=== PATIENT | male | born 1985 | race Two or more races ===

== ENCOUNTER 2018-04-28 08:01 | Emergency (ER) | payer SELFPAY ==
[2018-04-28 08:16] VITALS: BP 134/82; PULSE 80; TEMP 99.1; BMI 25.5
[2018-04-28] MEDS ORDERED: ACETAMINOPHEN 325 MG TABLET (FP) PO ONE (09:01)
[2018-04-28] MEDS ORDERED: SODIUM CHLORIDE 1,000 ML IV STA (09:01)
[2018-04-28] MEDS ORDERED: PANTOPRAZOLE SODIUM 40 MG VIAL IVPUSH ONE (09:01)
[2018-04-28] MEDS ORDERED: MAG HYDROX/AL HYDROX/SIMETH 30 ML UNIT-DOSE CUP PO ONE (09:01)
[2018-04-28] MEDS ORDERED: FAMOTIDINE 20 MG/50 ML IVPB 20 MG/50 ML MG IVPB ONE ×2 (09:01→09:42)
[2018-04-28] MEDS ORDERED: MAG HYDROX/AL HYDROX/SIMETH 30 ML UNIT-DOSE CUP ONE ×2 (09:42→09:49)
[2018-04-28] MEDS ORDERED: ACETAMINOPHEN 325 MG TABLET (FP) ONE (09:42)
[2018-04-28] MEDS ORDERED: PANTOPRAZOLE SODIUM 40 MG/100 ML BAG IVPB ONE (09:42)
[2018-04-28 10:11] LABS: BASO % 0.3 % (0-2.0); HEMATOCRIT 41.7 % (35.4-49); HEMOGLOBIN 14.6 GM/dL (11.7-16.9); LYMPH % 27.8 % (8-40); MCH 32.2 pg (25.7-33.7); MEAN CELL VOLUME 92.1 fl (80-96); MEAN PLT VOLUME 7.7 fl (7.5-11.1); MONO % 7.8 % (3.8-10.2); NEUT % 63.1 % (42.8-82.8); PLATELET COUNT 240 K/MM3 (134-434); RBC 4.53 M/mm3 (4.00-5.60); RDW 13.5 % (11.9-15.9); WHITE BLOOD COUNT 6.4 K/mm3 (4.0-10.0)
--- NOTE | 2018-04-28 10:17 | PDOC ---
History of Present Illness - General History Source: Patient Exam Limitations: No Limitations - History of Present Illness Initial Comments: 04/28/18 10:22 The patient is a 32 year old male with no significant past medical history, who presents to the emergency department with 3 day complaint of intermittent chest pain. He reports the pain is localized, lasting for several minutes before self resolving. He denies any pleuritic or exertional component of his pain. He states taking a deep breath alleviated his chest pain. The patient states he has had increased stress due to work and home life and has been drinking more energy drinks recently. He denies SOB, palpitations, dizziness, lightheadedness. He denies changes in urinary output or bowel movements. He denies any other complaints at this time. Allergies: NKDA social Hx: 1 pack per day smoker, everyday energy drinks Family History: No cardiac related family Hx <Alba Lino - Last Filed: 04/28/18 10:22> - General History Source: Patient Exam Limitations: No Limitations <Jae Forman - Last Filed: 04/28/18 11:09> - General Chief Complaint: Lightheaded Stated Complaint: DIZZINESS Time Seen by Provider: 04/28/18 08:18 Past History <Alba Lino - Last Filed: 04/28/18 10:22> - Past Medical History COPD: No - Immunization History Immunization Up to Date: Yes - Suicide/Smoking/Psychosocial Hx Smoking History: Current every day smoker Number of Cigarettes Smoked Daily: 20 Information on smoking cessation initiated: No Hx Alcohol Use: No Drug/Substance Use Hx: No <Jae Forman - Last Filed: 04/28/18 11:09> - Past Medical History Allergies/Adverse Reactions: Allergies Allergy/AdvReac Type Severity Reaction Status Date / Time No Known Allergies Allergy Verified 04/28/18 08:11 Home Medications: Ambulatory Orders Acetaminophen [Tylenol] 650 mg PO Q4H PRN #20 tablet 04/28/18 Pantoprazole Sodium [Protonix] 40 mg PO DAILY #30 tablet. 04/28/18 Ranitidine HCl [Zantac] 150 mg PO BID PRN #20 tablet 04/28/18 Review of Systems - Review of Systems Able to Perform ROS?: Yes Comments:: 04/28/18 10:26 GENERAL/CONSTITUTIONAL: No fever or chills. No weakness. HEAD, EYES, EARS, NOSE AND THROAT: No change in vision. No ear pain or discharge. No sore throat. CARDIOVASCULAR: (+) chest pain. NO shortness of breath. RESPIRATORY: No cough, wheezing, or hemoptysis. GASTROINTESTINAL: No nausea, vomiting, diarrhea or constipation. GENITOURINARY: No dysuria, frequency, or change in urination. MUSCULOSKELETAL: No joint or muscle swelling or pain. No neck or back pain. SKIN: No rash NEUROLOGIC: No headache, vertigo, loss of consciousness, or change in strength/ sensation. ENDOCRINE: No increased thirst. No abnormal weight change. HEMATOLOGIC/LYMPHATIC: No anemia, easy bleeding, or history of blood clots. ALLERGIC/IMMUNOLOGIC: No hives or skin allergy. <Alba Lino - Last Filed: 04/28/18 10:22> *Physical Exam - Vital Signs Last Vital Signs Temp Pulse Resp BP Pulse Ox 99.1 F 80 16 134/82 97 04/28/18 08:11 04/28/18 08:11 04/28/18 08:11 04/28/18 08:11 04/28/18 08:11 - Physical Exam Comments: 04/28/18 10:26 GENERAL: Awake, alert, and fully oriented, in no acute distress HEAD: No signs of trauma EYES: PERRLA, EOMI, sclera anicteric, conjunctiva clear ENT: Auricles normal inspection, hearing grossly normal, nares patent, oropharynx clear without exudates. Moist mucosa NECK: Normal ROM, supple, no lymphadenopathy, JVD, or masses LUNGS: Breath sounds equal, clear to auscultation bilaterally. No wheezes, and no crackles HEART: Regular rate and rhythm, normal S1 and S2, no murmurs, rubs or gallops ABDOMEN: Soft, nontender, normoactive bowel sounds. No guarding, no rebound. No masses EXTREMITIES: Normal range of motion, no edema. No clubbing or cyanosis. No cords, erythema, or tenderness NEUROLOGICAL: Cranial nerves II through XII grossly intact. Normal speech, normal gait SKIN: Warm, Dry, normal turgor, no rashes or lesions noted. <Alba Lino - Last Filed: 04/28/18 10:22> - Vital Signs Last Vital Signs Temp Pulse Resp BP Pulse Ox 99.1 F 80 16 134/82 97 04/28/18 08:11 04/28/18 08:11 04/28/18 08:11 04/28/18 08:11 04/28/18 08:11 <Jae Forman - Last Filed: 04/28/18 11:09> Moderate Sedation - Procedure Monitoring Vital Signs: Procedure Monitoring Vital Signs Temperature 99.1 F 04/28/18 08:11 Pulse Rate 80 04/28/18 08:11 Respiratory Rate 16 04/28/18 08:11 Blood Pressure 134/82 04/28/18 08:11 O2 Sat by Pulse Oximetry (%) 97 04/28/18 08:11 <Alba Lino - Last Filed: 04/28/18 10:22> - Procedure Monitoring Vital Signs: Procedure Monitoring Vital Signs Temperature 99.1 F 04/28/18 08:11 Pulse Rate 80 04/28/18 08:11 Respiratory Rate 16 04/28/18 08:11 Blood Pressure 134/82 04/28/18 08:11 O2 Sat by Pulse Oximetry (%) 97 04/28/18 08:11 <Jae Forman - Last Filed: 04/28/18 11:09> Heart Score/ECG Review - History History: Slightly suspicious - Electrocardiogram EKG: Normal - Age Age: </= 45 - Risk Factors Risk Factors Heart Score: Yes Smoking History Based on the list above the patient has:: 1-2 risk factors #1 ECG reviewed & interpreted by me at: 08:55 04/28/18 10:18 NSR 71, no ivette/std, normal axis, normal intervals, QTC 410 msec <Jae Forman - Last Filed: 04/28/18 11:09> ED Treatment Course - LABORATORY CBC & Chemistry Diagram: 04/28/18 09:57 04/28/18 09:57 - ADDITIONAL ORDERS Additional order review: 04/28/18 09:57 RBC 4.53 MCV 92.1 MCHC 35.0 RDW 13.5 MPV 7.7 Neutrophils % 63.1 Lymphocytes % 27.8 Monocytes % 7.8 Eosinophils % 1.0 Basophils % 0.3 - Medications Given in the ED: ED Medications Discontinued Medications Generic Name Dose Route Start Last Admin Trade Name Freq PRN Reason Stop Dose Admin Acetaminophen 975 mg 04/28/18 09:01 04/28/18 09:59 Tylenol - PO 04/28/18 09:02 975 mg ONCE ONE Administration Al Hydroxide/Mg Hydroxide 30 ml 04/28/18 09:01 04/28/18 09:59 Mylanta Oral Suspension - PO 04/28/18 09:02 30 ml ONCE ONE Administration Famotidine/Sodium Chloride 20 mg in 50 mls @ 100 mls/hr 04/28/18 09:01 09:59 Pepcid 20 Mg Premixed Ivpb - IVPB 04/28/18 09:30 100 mls/hr ONCE ONE Administration Sodium Chloride 1,000 mls @ 1,000 mls/hr 04/28/18 09:01 04/28/18 09:59 Normal Saline - IV 04/28/18 10:00 1,000 mls/hr ASDIR STA Administration Pantoprazole Sodium 40 mg 04/28/18 09:01 04/28/18 09:59 Protonix Iv IVPUSH 04/28/18 09:02 40 mg ONCE ONE Administration <Alba Lino - Last Filed: 04/28/18 10:22> - LABORATORY CBC & Chemistry Diagram: 04/28/18 09:57 04/28/18 09:57 - RADIOLOGY Radiology Studies Ordered: Category Date Time Status CHEST PA & LAT [RAD] Stat Radiology 04/28/18 09:01 Ordered - Medications Given in the ED: ED Medications Discontinued Medications Generic Name Dose Route Start Last Admin Trade Name Freq PRN Reason Stop Dose Admin Acetaminophen 975 mg 04/28/18 09:01 04/28/18 09:59 Tylenol - PO 04/28/18 09:02 975 mg ONCE ONE Administration Al Hydroxide/Mg Hydroxide 30 ml 04/28/18 09:01 04/28/18 09:59 Mylanta Oral Suspension - PO 04/28/18 09:02 30 ml ONCE ONE Administration Famotidine/Sodium Chloride 20 mg in 50 mls @ 100 mls/hr 04/28/18 09:01 09:59 Pepcid 20 Mg Premixed Ivpb - IVPB 04/28/18 09:30 100 mls/hr ONCE ONE Administration Sodium Chloride 1,000 mls @ 1,000 mls/hr 04/28/18 09:01 04/28/18 09:59 Normal Saline - IV 04/28/18 10:00 1,000 mls/hr ASDIR STA Administration Pantoprazole Sodium 40 mg 04/28/18 09:01 04/28/18 09:59 Protonix Iv IVPUSH 04/28/18 09:02 40 mg ONCE ONE Administration <Jae Forman - Last Filed: 04/28/18 11:09> Medical Decision Making - Medical Decision Making 04/28/18 10:04 A portion of this note was documented by scribe services under my direction. I have reviewed the details of the note, within reason, and agree with the documentation with the following case summary and management plan written by me. Patient treated in the ED. Nursing notes are reviewed and incorporated into the medical decision-making. Vital signs reviewed. Peripheral IV access obtained by the nurse, laboratory studies are drawn and sent, reviewed and interpreted by myself. Vital Signs Temp Pulse Resp BP Pulse Ox 99.1 F 80 16 134/82 97 04/28/18 08:11 04/28/18 08:11 04/28/18 08:11 04/28/18 08:11 04/28/18 08:11 32 year old male with no past medical history, 1 pack per day smoker, everyday energy drinks presents with approximately 3 days of intermittent, nonpleuritic, nonexertional chest pain. Pt has been more stressed lately at work and at home. noted that he has been drinking more energey drinks. Started to develop several minutes, random chest discomfort. No nausea or vomiting. When he took a deep breath, his symptoms improved. Unclear if the pain is related to food or drinks or time of day. No family history of early onset NE or cardiac disease. The patient's history is very atypical. PERC negative. Unlikely to be NE or PE. I suspect that there is some component of GERD, particular with the alcohol and energy drinks. ECG is reassuring. Will obtain a chest xray and labs including troponin. Trial GERD medications and reassess. 04/28/18 11:03 Pt feels some relief from GERD medications. However, pt has a negative chest xray and labs and ECG. Pt is having insurance issues at the moment. Will refer him to clinic at 1 pm this Monday for follow up for further evaluation. Pt given results and feels more comfortable. Pt can be worked up as an outpatient. I discussed the physical exam findings, ancillary test results and final diagnoses with the patient. I answered all of the patient's questions. The patient was satisfied with the care received and felt comfortable with the discharge plan and treatment plan. The patient will call their primary care physician within 24 hours to arrange follow-up and will return to the Emergency Department with any new, persistant or worsening symptoms. <Jae Forman - Last Filed: 04/28/18 11:09> *DC/Admit/Observation/Transfer - Attestations Scribe Attestion: 04/28/18 10:26 Documentation prepared by Alba Lino, acting as medical billing manager for Jae Forman MD <Alba Lino - Last Filed: 04/28/18 10:22> - Discharge Dispostion Decision to Admit order: No <Jae Forman - Last Filed: 04/28/18 11:09> Diagnosis at time of Disposition: Atypical chest pain - Discharge Dispostion Disposition: HOME Condition at time of disposition: Stable - Prescriptions Prescriptions: Acetaminophen [Tylenol] 650 mg PO Q4H PRN #20 tablet PRN Reason: Pain Pantoprazole Sodium [Protonix] 40 mg PO DAILY #30 tablet. Ranitidine HCl [Zantac] 150 mg PO BID PRN #20 tablet PRN Reason: GERD - Referrals Referrals: Zachary Vernon MD [Staff Physician] - - Patient Instructions Printed Discharge Instructions: DI for Atypical Chest Pain, DI for Gastroesophageal Reflux Disease (GERD) Additional Instructions: You have a copy of your blood work. Please go to [address] [place] [address] in [place], [place] at 1 pm this MondayMay 02. Take 40 mg protonix daily for acid reflux. Take a tablet of zantac every 12 hours as needed for additional relief. Decrease your energy drink use.
[2018-04-28 10:40] LABS: ALBUMIN 4.1 g/dl (3.4-5.0); ALK PHOS 52 U/L (45-117); ANION GAP 7 MMOL/L (8-16); BILIRUBIN,TOTAL 0.8 mg/dL (0.2-1); BLOOD UREA NITROGEN 11 mg/dL (7-18); CALCIUM 9.1 mg/dL (8.5-10.1); CHLORIDE 105 mmol/L (98-107); CO2 30 mmol/L (21-32); CREATININE 0.7 mg/dL (0.55-1.3); GLUCOSE,RANDOM 102 mg/dL (74-106); LIPASE 107 U/L (73-393); POTASSIUM 4.3 mmol/L (3.5-5.1); SGOT/AST 13 U/L (15-37); SGPT/ALT 30 U/L (13-61); SODIUM 142 mmol/L (136-145); TOT PROT 7.6 g/dl (6.4-8.2)
== END 2018-04-28 11:30 | disposition home or self-care (01) ==
LOC: JER 08:01
PROC: 3E033GC Introduction of Other Therapeutic Substance into Peripheral Vein, Percutaneous Approach (ICD-10-PCS; principal; 2018-04-28)
PROC: 3E033GC Introduction of Other Therapeutic Substance into Peripheral Vein, Percutaneous Approach (ICD-10-PCS; 2018-04-28)
DX: R07.9 Chest pain, unspecified (principal); K21.9 Gastro-esophageal reflux disease without esophagitis; F17.210 Nicotine dependence, cigarettes, uncomplicated
CPT/HCPCS: 36415; 71046-TC-FY; 80053; 82550; 82553; 83690; 84484; 85025; 99281-25; J7030

== ENCOUNTER 2023-01-26 14:27 | Emergency (ER) | payer OTHER ==
[2023-01-26 14:37] VITALS: RESP 18; BMI 28.8
[2023-01-26] MEDS ORDERED: KETOROLAC TROMETHAMINE 15 MG/ML VIAL IM ONE (15:20)
[2023-01-26] MEDS ORDERED: LIDOCAINE 5% TOPICAL PATCH TP ONE (15:20)
[2023-01-26] MEDS ORDERED: LIDOCAINE 4% PATCH TP ONE ×2 (15:29→15:30)
[2023-01-26] MEDS ORDERED: KETOROLAC TROMETHAMINE 30 MG/1 ML VIAL ONE (15:30)
[2023-01-26] MEDS ORDERED: ACETAMINOPHEN 500 MG TABLET (FP) PO ONE (16:30)
[2023-01-26] MEDS ORDERED: ACETAMINOPHEN 325 MG TABLET (FP) ONE (16:34)
[2023-01-26 16:48] VITALS: BP 113/72; PULSE 64; TEMP 98.6
[2023-01-26] MEDS ORDERED: LIDOCAINE PATCH REMOVAL MC SCH (22:00)
== END 2023-01-26 18:00 | disposition home or self-care (01) ==
LOC: JER 14:27
PROC: 2W3EX1Z Immobilization of Right Hand using Splint (ICD-10-PCS; principal; 2023-01-26)
PROC: 3E0233Z Introduction of Anti-inflammatory into Muscle, Percutaneous Approach (ICD-10-PCS; 2023-01-26)
DX: M25.531 Pain in right wrist (principal); M79.631 Pain in right forearm; M25.512 Pain in left shoulder; M54.50 Low back pain, unspecified; R22.31 Localized swelling, mass and lump, right upper limb; W11.XXXA Fall on and from ladder, initial encounter
CPT/HCPCS: 71045-TC-FY; 72100-TC-FY; 72170-TC-FY; 73070-TC-RT-FY; 73090-TC-RT-FY; 73110-TC-RT-FY; 73130-TC-RT-FY; 99284-25